=== PATIENT | female | born 1975 | race Two or more races ===

== ENCOUNTER 2017-10-17 22:35 | Emergency (ER) | payer OTHER ==
[~2017-10-17] VITALS: Ht 165.1 cm; Wt 59.0 kg
[2017-10-17 23:00] VITALS: BP 131/69
[2017-10-17] MEDS ORDERED: ONDANSETRON 4 MG TAB.RAPDIS SL ONE (23:30)
[2017-10-17] MEDS ORDERED: ACETAMINOPHEN ES 500 MG TABLET PO ONE (23:30)
[2017-10-17] MEDS ORDERED: ACETAMINOPHEN ES 500 MG TABLET ONE (23:34)
[2017-10-17] MEDS ORDERED: ONDANSETRON 4 MG TAB.RAPDIS ONE (23:35)
== END 2017-10-17 23:40 | disposition home or self-care (01) ==
LOC: ER 22:39
DX: S09.8XXA Other specified injuries of head, initial encounter (principal); R11.0 Nausea; G43.909 Migraine, unspecified, not intractable, without status migrainosus; W22.8XXA Striking against or struck by other objects, initial encounter; Y93.89 Activity, other specified; Y92.89 Other specified places as the place of occurrence of the external cause; Y99.8 Other external cause status
CPT/HCPCS: A4606; Q0162; Z7610